=== PATIENT | female | born 1995 ===

== ENCOUNTER 2017-11-20 09:06 | Emergency (ER) | payer OTHER ==
[2017-11-20 09:17] VITALS: RESP 18
[2017-11-20 10:12] LABS: Anisocytosis Slight; Basophils % (A) 0 %; Eosinophils # (A) 0.2 k/uL (0-0.7); Eosinophils % (A) 2 %; HCT 31.1 % (34.0-46.0); HGB 9.1 gm/dL (11.4-16.0); Hypochromasia Marked; Lymphocytes % (A) 31 %; MCH 19.7 pg (25.0-35.0); MCHC 29.3 g/dL (31.0-37.0); MCV 67.4 fL (80.0-100.0); Mean Platelet Volume 6.4; Microcytosis Marked; Monocytes # (A) 0.5 k/uL (0-1.0); Monocytes % (A) 5 %; Neutrophils # (A) 6.1 k/uL (1.3-7.7); Neutrophils % (A) 61 %; Platelet Count 339 k/uL (150-450); RBC 4.62 m/uL (3.80-5.40); RDW 17.9 % (11.5-15.5)
--- NOTE | 2017-11-20 10:18 | ED ---
General Adult HPI - General Chief complaint: Vaginal Bleeding Stated complaint: Vaginal Bleeding Time Seen by Provider: 11/20/17 09:31 Source: patient, RN notes reviewed Mode of arrival: ambulatory Limitations: no limitations - History of Present Illness Initial comments: Patient 21-year-old female presented to the emergency room today with a chief complaint of vaginal bleeding over the last 3 weeks. She does admit that she's had some lower abdominal cramping. Does admit that she is passing large clots. Patient states that she has not felt dizzy or lightheaded. She states that she had similar symptoms back in May 2017 was seen at [facility]. She states that she had ultrasound which showed a cyst. She states over the also was negative and she has not followed up with an [facility]. She states that she recently started working a new job and got new insurance. Patient denies any other complaints or symptoms. She states she used to be on control had normal periods at that time. She states she has stopped over the last year because she is trying to get . Patient denies any recent fever, chills, shortness of breath, chest pain, back pain, nausea or vomiting, numbness or tingling, constipation or diarrhea, headaches or visual changes, or any other complaints. - Related Data Home Medications Medication Instructions Recorded Confirmed Acetaminophen with Codeine 1 tab PO Q6HR PRN 11/20/17 11/20/17 [Tylenol w/codeine #4] Cyclobenzaprine [Flexeril] 5 mg PO HS 11/20/17 11/20/17 Ergocalciferol (Vitamin D2) 50,000 unit PO MO 11/20/17 11/20/17 [Vitamin D2] Ferrous Sulfate [Feosol] 325 mg PO DAILY 11/20/17 11/20/17 Levothyroxine Sodium [Synthroid] 100 mcg PO DAILY 11/20/17 11/20/17 Pnv,Calcium 72/Iron/Folic Acid 1 tab PO DAILY 11/20/17 11/20/17 [ Plus Tablet] Terbinafine [LamISIL] 250 mg PO DAILY 11/20/17 11/20/17 metFORMIN HCL [Glucophage] 500 mg PO HS 11/20/17 11/20/17 Allergies Allergy/AdvReac Type Severity Reaction Status Date / Time No Known Allergies Allergy Verified 11/20/17 09:54 Review of Systems ROS Statement: Those systems with pertinent positive or pertinent negative responses have been documented in the HPI. ROS Other: All systems not noted in ROS Statement are negative. Past Medical History Additional Past Medical History / Comment(s): ovarian cyst, bulging disc History of Any Multi-Drug Resistant Organisms: None Reported Past Surgical History: Tonsillectomy Additional Past Surgical History / Comment(s): wisdom teeth extraction Past Psychological History: No Psychological Hx Reported Smoking Status: Never smoker Past Alcohol Use History: Occasional Past Drug Use History: None Reported General Exam - General Exam Comments Initial Comments: General: The patient is awake and alert, in no distress, and does not appear acutely ill. Eye: Pupils are equal, round and reactive to light, extra-ocular movements are intact. No nystagmus. There is normal conjunctiva bilaterally. No signs of icterus. Ears, nose, mouth and throat: There are moist mucous membranes and no oral lesions. Neck: The neck is supple, there is no tenderness or JVD. Cardiovascular: There is a regular rate and rhythm. No murmur, rub or gallop is appreciated. Respiratory: Lungs are clear to auscultation, respirations are non-labored, breath sounds are equal. No wheezes, stridor, rales, or rhonchi. Gastrointestinal: Mild tenderness to lower abdomen. No rebound tenderness. No guarding, no CVA tenderness. Musculoskeletal: Normal ROM, no tenderness. Strength 5/5. Sensation intact. Pulses equal bilaterally 2+. Neurological: A&O x 3. CN II-XII intact, There are no obvious motor or sensory deficits. Coordination appears grossly intact. Speech is normal. Skin: Skin is warm and dry and no rashes or lesions are noted. Psychiatric: Cooperative, appropriate mood & affect, normal judgment. Limitations: no limitations Course Vital Signs 11/20/17 09:13 Temperature 97.7 F Pulse Rate 87 Respiratory 18 Rate Blood Pressure 136/65 O2 Sat by Pulse 99 Oximetry Medical Decision Making - Medical Decision Making Patient's labs been reviewed does show hemoglobin 9.1. No labs to compare to. Patient's ultrasound reveals Thickened and heterogeneous endometrium which is nonspecific. Area of fluid near the fundus within the endometrium. Patient's pharmacy test is negative. Case discussed in detail with attending physician Dr. Lozoya. Patient reexamined at this time shows no signs of distress resting comfortable. Advised to follow-up with [facility]. She does admit that she has appointment presents in 2 weeks. She is advised to return to emergency room if there is any dizziness or lightheadedness or increased symptoms. She states understanding and is in agreement. - Lab Data Result diagrams: 11/20/17 09:59 11/20/17 09:59 Lab Results 11/20/17 11/20/17 11/20/17 Range/Units 09:59 09:59 09:59 WBC 10.0 (3.8-10.6) k/uL RBC 4.62 (3.80-5.40) m/uL Hgb 9.1 L (11.4-16.0) gm/dL Hct 31.1 L (34.0-46.0) % MCV 67.4 L (80.0-100.0) fL MCH 19.7 L (25.0-35.0) pg MCHC 29.3 L (31.0-37.0) g/dL RDW 17.9 H (11.5-15.5) % Plt Count 339 (150-450) k/uL Neutrophils % 61 % Lymphocytes % 31 % Monocytes % 5 % Eosinophils % 2 % Basophils % 0 % Neutrophils # 6.1 (1.3-7.7) k/uL Lymphocytes # 3.0 (1.0-4.8) k/uL Monocytes # 0.5 (0-1.0) k/uL Eosinophils # 0.2 (0-0.7) k/uL Basophils # 0.0 (0-0.2) k/uL Hypochromasia Marked Anisocytosis Slight Microcytosis Marked Sodium 142 (137-145) mmol/L Potassium 4.4 (3.5-5.1) mmol/L Chloride 105 (98-107) mmol/L Carbon Dioxide 23 (22-30) mmol/L Anion Gap 14 mmol/L BUN 16 (7-17) mg/dL Creatinine 0.55 (0.52-1.04) mg/dL Est GFR (CKD-EPI)AfAm >90 (>60 ml/min/1.73 sqM) Est GFR (CKD-EPI)NonAf >90 (>60 ml/min/1.73 sqM) Glucose 100 H (74-99) mg/dL Calcium 9.3 (8.4-10.2) mg/dL Total Bilirubin 0.3 (0.2-1.3) mg/dL AST 36 (14-36) U/L ALT 47 (9-52) U/L Alkaline Phosphatase 127 H (38-126) U/L Total Protein 6.9 (6.3-8.2) g/dL Albumin 4.2 (3.5-5.0) g/dL Urine Color Urine Appearance (Clear) Urine pH (5.0-8.0) Ur Specific [place] (1.001-1.035) Urine Protein (Negative) Urine Glucose (UA) (Negative) Urine Ketones (Negative) Urine Blood (Negative) Urine Nitrite (Negative) Urine Bilirubin (Negative) Urine Urobilinogen (<2.0) mg/dL Ur Leukocyte Esterase (Negative) Urine HCG, Qual Not Detected (Not Detectd) 11/20/17 Range/Units 09:59 WBC (3.8-10.6) k/uL RBC (3.80-5.40) m/uL Hgb (11.4-16.0) gm/dL Hct (34.0-46.0) % MCV (80.0-100.0) fL MCH (25.0-35.0) pg MCHC (31.0-37.0) g/dL RDW (11.5-15.5) % Plt Count (150-450) k/uL Neutrophils % % Lymphocytes % % Monocytes % % Eosinophils % % Basophils % % Neutrophils # (1.3-7.7) k/uL Lymphocytes # (1.0-4.8) k/uL Monocytes # (0-1.0) k/uL Eosinophils # (0-0.7) k/uL Basophils # (0-0.2) k/uL Hypochromasia Anisocytosis Microcytosis Sodium (137-145) mmol/L Potassium (3.5-5.1) mmol/L Chloride (98-107) mmol/L Carbon Dioxide (22-30) mmol/L Anion Gap mmol/L BUN (7-17) mg/dL Creatinine (0.52-1.04) mg/dL Est GFR (CKD-EPI)AfAm (>60 ml/min/1.73 sqM) Est GFR (CKD-EPI)NonAf (>60 ml/min/1.73 sqM) Glucose (74-99) mg/dL Calcium (8.4-10.2) mg/dL Total Bilirubin (0.2-1.3) mg/dL AST (14-36) U/L ALT (9-52) U/L Alkaline Phosphatase (38-126) U/L Total Protein (6.3-8.2) g/dL Albumin (3.5-5.0) g/dL Urine Color Yellow Urine Appearance Clear (Clear) Urine pH 6.0 (5.0-8.0) Ur Specific [place] 1.032 (1.001-1.035) Urine Protein Trace H (Negative) Urine Glucose (UA) Negative (Negative) Urine Ketones Negative (Negative) Urine Blood Negative (Negative) Urine Nitrite Negative (Negative) Urine Bilirubin Negative (Negative) Urine Urobilinogen 3.0 (<2.0) mg/dL Ur Leukocyte Esterase Negative (Negative) Urine HCG, Qual (Not Detectd) Disposition Clinical Impression: Dysfunctional uterine bleeding Disposition: HOME SELF-CARE Condition: Good Instructions: Dysfunctional Uterine Bleeding (ED) Additional Instructions: Please follow-up with [facility] as discussed. Please return to emergency room if symptoms increase worsen or for any other concerns. Is patient prescribed a controlled substance at d/c from ED?: No Referrals: Sher Mcadams MD [Primary Care Provider] - 1-2 days Trish Merritt DO [Doctor of Osteopathic Medicine] - 1-2 days Time of Disposition: 12:05
[2017-11-20 10:24] LABS: ALT 47 U/L (9-52); AST 36 U/L (14-36); Albumin 4.2 g/dL (3.5-5.0); Alkaline Phosphatase 127 U/L (38-126); Anion Gap 14 mmol/L; Blood Urea Nitrogen 16 mg/dL (7-17); Calcium 9.3 mg/dL (8.4-10.2); Carbon Dioxide 23 mmol/L (22-30); Chloride 105 mmol/L (98-107); Glucose 100 mg/dL (74-99); Potassium 4.4 mmol/L (3.5-5.1); Sodium 142 mmol/L (137-145); Total Bilirubin 0.3 mg/dL (0.2-1.3); Total Protein 6.9 g/dL (6.3-8.2)
[2017-11-20 10:25] LABS: Appearance,Urine Clear (Clear); Bilirubin,Urine Negative (Negative); Blood,Urine Negative (Negative); Color,Urine Yellow; Glucose,Urine (UA) Negative (Negative); Ketones,Urine Negative (Negative); Leukocyte Esterase,Urine Negative (Negative); Nitrite,Urine Negative (Negative); Protein,Urine Trace (Negative); Specific Gravity,Urine 1.032 (1.001-1.035)
--- NOTE | 2017-11-20 11:44 | US ---
EXAMINATION TYPE: US transvaginal DATE OF EXAM: 11/20/2017 COMPARISON: NONE CLINICAL HISTORY: Vaginal bleeding. Pt states heavy vaginal bleeding x 3 weeks TECHNIQUE: Transvaginal (TV). EXAM MEASUREMENTS: Uterus: 7.2 x 3.2 x 4.6 cm Endometrial Stripe: 1.3 cm Right Ovary: 3.6 x 2.3 x 2.2 cm Left Ovary: 2.5 x 2.0 x 2.0 cm 1. Uterus: Anteverted Nabothian cysts in cervix 2. Endometrium: Thickened, heterogeneous 3. Right Ovary: wnl 4. Left Ovary: wnl Spectral, color and waveform doppler imaging shows good arterial and venous flow within the ovaries ; there is no evidence for ovarian torsion. 5. Bilateral Adnexa: wnl 6. Posterior cul-de-sac: wnl IMPRESSION: 1. Thickened and heterogeneous endometrium is a nonspecific finding. Question of an area of fluid sally r the fundus within the endometrium. No definite definable sac is identified. Correlate with beta hCG to exclude ectopic or missed or early . Otherwise consider endometrial h yperplasia or other pathology of the endometrium.
[2017-11-20 12:18] VITALS: BP 111/56; PULSE 74; TEMP 97.8
== END 2017-11-20 12:17 | disposition home or self-care (01) ==
LOC: EC 09:06
DX: N93.8 Other specified abnormal uterine and vaginal bleeding (principal); Z87.42 Personal history of other diseases of the female genital tract; Z79.84 Long term (current) use of oral hypoglycemic drugs; Z79.899 Other long term (current) drug therapy
CPT/HCPCS: 36415; 76830; 80053; 81003; 81025; 85025; 93975; 99284

== ENCOUNTER 2019-09-25 11:52 | Emergency (ER) | payer OTHER ==
--- NOTE | 2019-09-25 12:37 | ED ---
General Adult HPI - General Chief complaint: Shortness of Breath Stated complaint: SOB/sent by pcp Time Seen by Provider: 09/25/19 12:06 Source: patient, RN notes reviewed, old records reviewed Mode of arrival: ambulatory Limitations: no limitations - History of Present Illness Initial comments: 23-year-old female patient with no pertinent past history presents to the chief complaint of chest pain and shortness of breath. Patient reports that she has had a cough for the last 2 weeks. She states that she completed a course of azithromycin. Patient reports at approximately 8 AM this morning he began to have described as a dull chest pain underneath her left breast. Reports that at that time she did have some associated shortness of breath. This lasted 2 minutes. At time of evaluation patient is currently asymptomatic. Denies any chest pain or shortness of breath. Does put that she is still coughing. She denies any leg pain, recent travel, use oral contraceptives, blood disorders, recent surgery. Systemic: Pt denies fatigue, fever/chills, rash. Pt denies weakness, night sweats, weight loss. Neuro: Pt denies headache, visual disturbances, syncope or pre-syncope. HEENT: Pt denies ocular discharge or irritation, otalgia, rhinorrhea, pharyngitis or notable lymphadenopathy. Cardiopulmonary: Pt denies heart palpitations. Abdominal/GI: Pt denies abdominal pain, n/v/d. : Pt denies dysuria, burning w/ urination, frequency/urgency. Denies new onset urinary or bowel incontinence. MSK: Pt denies myalgia, loss of strength or function in extremities. Neuro: Pt denies new onset weakness, paresthesias. - Related Data Home Medications Medication Instructions Recorded Confirmed Acetaminophen with Codeine 1 tab PO Q6HR PRN 11/20/17 11/20/17 [Tylenol w/codeine #4] Cyclobenzaprine [Flexeril] 5 mg PO HS 11/20/17 11/20/17 Ergocalciferol (Vitamin D2) 50,000 unit PO MO 11/20/17 11/20/17 [Vitamin D2] Ferrous Sulfate [Feosol] 325 mg PO DAILY 11/20/17 11/20/17 Levothyroxine Sodium [Synthroid] 100 mcg PO DAILY 11/20/17 11/20/17 Pnv,Calcium 72/Iron/Folic Acid 1 tab PO DAILY 11/20/17 11/20/17 [ Plus Tablet] Terbinafine [LamISIL] 250 mg PO DAILY 11/20/17 11/20/17 metFORMIN HCL [Glucophage] 500 mg PO HS 11/20/17 11/20/17 Allergies Allergy/AdvReac Type Severity Reaction Status Date / Time No Known Allergies Allergy Verified 09/25/19 12:00 Review of Systems ROS Statement: Those systems with pertinent positive or pertinent negative responses have been documented in the HPI. ROS Other: All systems not noted in ROS Statement are negative. Past Medical History Additional Past Medical History / Comment(s): ovarian cyst, bulging disc History of Any Multi-Drug Resistant Organisms: None Reported Past Surgical History: Tonsillectomy Additional Past Surgical History / Comment(s): wisdom teeth extraction Past Psychological History: No Psychological Hx Reported Smoking Status: Never smoker Past Alcohol Use History: Occasional Past Drug Use History: None Reported General Exam - General Exam Comments Initial Comments: Constitutional: NAD, AOX3, Pt has pleasant affect. HEENT: NC/AT, trachea midline, neck supple, no lymphadenopathy. Posterior pharynx non erythematous, without exudates. External ears appear normal, without discharge. Mucous membranes moist. Eyes PERRLA, EOM intact. There is no scleral icterus. No pallor noted. Cardiopulmonary: RRR, no murmurs, rubs or gallops, no JVD noted. Lungs CTAB in anterior and posterior hale. No peripheral edema. Chest pain reproducible upon palpation. No skin changes. Abdominal exam: Abdomen soft and non-distended. Abdomen non-tender to palpation in all 4 quadrants. Bowel sounds active in LLQ. No hepatosplenomegaly. No ecchymosis Neuro: CN II-XII grossly intact. No nuchal rigidity. No raccon eyes, no atwood sign, no hemotympanum. No cervical spinal tenderness. MSK: No posterior calf tenderness bilaterally, homans sign negative bilaterally. Posterior tibialis and radial pulse +2 bilaterally. Sensation intact in upper and lower extremities. Full active ROM in upper and lower extremities, 5/5 stregnth. Limitations: no limitations Course Vital Signs 09/25/19 09/25/19 09/25/19 11:57 12:45 12:46 Temperature 98.7 F Pulse Rate 73 Respiratory 18 20 20 Rate Blood Pressure 126/83 O2 Sat by Pulse 99 Oximetry Medical Decision Making - Medical Decision Making 23-year-old female patient with no pertinent past history presents to the chief complaint of chest pain and shortness of breath. Patient reports that she has had a cough for the last 2 weeks. She states that she completed a course of azithromycin. Patient reports at approximately 8 AM this morning he began to have described as a dull chest pain underneath her left breast. Reports that at that time she did have some associated shortness of breath. This lasted 2 minutes. At time of evaluation patient is currently asymptomatic. Denies any chest pain or shortness of breath. Does put that she is still coughing. She denies any leg pain, recent travel, use oral contraceptives, blood disorders, recent surgery. Patient was under stable, afebrile. Physical exam displayed the chest pain to be reproducible upon palpation. No skin changes. HCG negative. Chest x-ray revealed no acute process. EKG is nonischemic. Pt is PERC negative. Patient likely experiencing a costochondritis-like syndrome. Patient is in no acute distress. Will be discharged, will be advised to follow- up with primary care provider tomorrow, return to ER if condition worsens and self quarantine for 2 weeks. Case discussed with Dr. Alvarez. - Lab Data Lab Results 09/25/19 Range/Units 12:40 Urine HCG, Qual Not Detected (Not Detectd) - EKG Data -: EKG Interpreted by Me (and Dr. Alvarez ) EKG Comments: Ventricular rate 76, NM interval 122, QRS 102, QT/QTC 370/416. Normal sinus rhythm, normal EKG, no concern for acute ischemia. Disposition Clinical Impression: Chest wall pain Disposition: HOME SELF-CARE Condition: Stable Instructions (If sedation given, give patient instructions): Costochondritis (ED) Additional Instructions: Follow-up with primary care provider tomorrow. Self quarantine for next 2 weeks. Return to ER if condition worsens. Is patient prescribed a controlled substance at d/c from ED?: No Referrals: Sher Mcadams MD [Primary Care Provider] - 1-2 days
--- NOTE | 2019-09-25 13:20 | XR ---
EXAMINATION TYPE: XR chest 2V DATE OF EXAM: 09/25/2019 COMPARISON: NONE HISTORY: Shortness of breath and chest pain TECHNIQUE: Frontal and lateral views of the chest are obtained. FINDINGS: There is no focal air space opacity, pleural effusion, or pneumothorax seen. The cardiac silhouette size is within normal limits. The osseous structures are intact. IMPRESSION: No acute cardiopulmonary process.
[2019-09-25 13:38] VITALS: BP 136/71; PULSE 71; RESP 18; TEMP 98.3
== END 2019-09-25 13:40 | disposition home or self-care (01) ==
LOC: EC 11:52
DX: R07.89 Other chest pain (principal); R06.02 Shortness of breath; R05 Cough; Z79.890 Hormone replacement therapy; Z79.84 Long term (current) use of oral hypoglycemic drugs; Z79.899 Other long term (current) drug therapy
CPT/HCPCS: 71046; 81025; 99285